=== PATIENT | male | born 1955 | race Caucasian/White ===

== ENCOUNTER → 2018-05-07 | Outpatient (CLI) | payer OTHER | LOC: RAD 14:07 | DX: M47.816 Spondylosis without myelopathy or radiculopathy, lumbar region (principal); M48.061 Spinal stenosis, lumbar region without neurogenic claudication; M25.78 Osteophyte, vertebrae; I70.0 Atherosclerosis of aorta ==

== ENCOUNTER 2018-12-12 08:20 | Emergency (ER) | payer OTHER ==
[~2018-12-12] VITALS: Ht 165.1 cm; Wt 72.6 kg
[2018-12-12] MEDS ORDERED: NORFLEX100 MG PO (09:09)
[2018-12-12] MEDS ORDERED: CRESTOR20 MG PO (09:18)
[2018-12-12] MEDS ORDERED: NORCO 7.5-3251 EACH PO (09:19)
[2018-12-12] MEDS ORDERED: NORVASC5 MG PO (09:19)
[2018-12-12 09:35] VITALS: BP 151/69
--- NOTE | 2018-12-12 11:03 | EKG ---
[address] [place] [address] ELECTROCARDIOGRAM REPORT Name: WILLARD DE LEON Room #: DEP EMILY Newsome#: [id number] Admission: 12/12/18 Attend Phys: Discharge: 12/12/18 Date of : 51 Report #: [id number] THIS REPORT FOR: //name// [facility] ED Test Date: 2018-12-12 Test Time: 09:12:54 Pat Name: WILLARD DE LEON Department: Room: Gender: Adolescent Medicine Specialist: [facility] : 1955 Requested By: Amrit Campbell Order Number: [id number] MD: Eugenio Escamilla Measurements Intervals [place] Rate: 69 P: -48 IA: 133 QRS: 30 QRSD: 95 T: 54 QT: 381 QTc: 408 Interpretive Statements Sinus or ectopic atrial rhythm Minimal ST elevation, probable early repolarization Compared to ECG 05/19/2013 11:01:23 Ectopic atrial rhythm now present Sinus bradycardia no longer present Electronically Signed On 12-12-2018 11:03:32 CDT by Eugenio Escamilla [email or web address] <ELECTRONICALLY SIGNED> By: Eugenio Escamilla MD 12/12/18 1103 0912 1 MD ALE Jensen
== END 2018-12-12 09:46 | disposition home or self-care (01) ==
LOC: ER 08:20
DX: M54.2 Cervicalgia (principal); I10 Essential (primary) hypertension; E78.5 Hyperlipidemia, unspecified; J45.909 Unspecified asthma, uncomplicated

== ENCOUNTER → 2019-10-04 | Outpatient (CLI) | payer OTHER ==
[~2019-10-04] MED LIST: CRESTOR20 MG PO; NORCO 7.5-3251 EACH PO; NORFLEX100 MG PO; NORVASC5 MG PO
== END ==
LOC: SJCVC 10:03
DX: R93.1 Abnormal findings on diagnostic imaging of heart and coronary circulation (principal); I10 Essential (primary) hypertension; E78.5 Hyperlipidemia, unspecified; R73.03 Prediabetes; J45.909 Unspecified asthma, uncomplicated; Z82.49 Family history of ischemic heart disease and other diseases of the circulatory system; Z87.891 Personal history of nicotine dependence; Z79.84 Long term (current) use of oral hypoglycemic drugs; Z79.899 Other long term (current) drug therapy